=== PATIENT | male | born 1990 | race African-American/Black ===

== ENCOUNTER 2021-09-07 13:53 | Inpatient (IN) | payer BC ==
[~2021-09-07] VITALS: Ht 175.3 cm; Wt 77.1 kg
[2021-09-07] MEDS ORDERED: METHYLPREDNISOLONE SOD SUCC 125 MG/2 ML VIAL IV ONE (14:15)
[2021-09-07] MEDS ORDERED: DIPHENHYDRAMINE 50MG/ML VIAL IV ONE (14:15)
[2021-09-07] MEDS ORDERED: FAMOTIDINE 20MG/2ML VIAL IV STA (14:15)
[2021-09-07] MEDS ORDERED: SODIUM CHLORIDE 0.9% 1,000 ML IV ONE (14:15)
[2021-09-07] MEDS ORDERED: FLUO15CR46 TP (14:16)
[2021-09-07 16:00] LABS: HEMATOCRIT. 45.8 % (42.0-52.0); HEMOGLOBIN. 15.9 g/dL (14.0-18.0); MEAN CORPUSCULAR HEMOGLOBIN 28.6 pg (28.0-32.0); MEAN CORPUSCULAR VOLUME 82.6 fL (80.0-94.0); MEAN PLATELET VOLUME 9.5 fl (7.4-10.4); PLATELET 163 x1000/uL (130-400); RED BLOOD CELL COUNT 5.55 mill/uL (4.7-6.1)
[2021-09-07] MEDS ORDERED: DIPHENHYDRAMINE 50MG/ML VIAL IV NR (16:00)
[2021-09-07] MEDS ORDERED: METHYLPREDNISOLONE SOD SUCC 125 MG/2 ML VIAL IV NR (16:00)
[2021-09-07] MEDS ORDERED: FAMOTIDINE 20MG/2ML VIAL IV NR (16:00)
[2021-09-07 16:04] LABS: CHLORIDE 101 mEq/L (98-107)
[2021-09-07 16:06] LABS: INR 1.1; PROTHROMBIN TIME 11.8 sec (9.6-11.0)
[2021-09-07] MEDS ORDERED: PIPERACILLIN/TAZ 3.375G PREMIX 50 ML IV ONE (16:30)
[2021-09-07] MEDS ORDERED: SODIUM CHLORIDE 0.9% 1000ML BAG (SEPSIS BOLUS) IV ONE (16:30)
[2021-09-07] MEDS ORDERED: VANCOMYCIN 1G PREMIX 200 ML IV ONE (16:30)
[2021-09-07 17:00] LABS: PLATELET ESTIMATE NORMAL
[2021-09-07] MEDS ORDERED: VANCOMYCIN 1GM PMX (XELLIA) 200 ML IV NR (17:30)
[2021-09-07 19:00] VITALS: BP 112/63
[2021-09-07] MEDS ORDERED: ACETAMINOPHEN 325MG TABLET PO PRN (19:00)
[2021-09-07] MEDS ORDERED: ONDANSETRON HCL 4MG/2ML INJ IV PRN (19:00)
[2021-09-07] MEDS ORDERED: GUAIFENESIN 200MG/10ML SUGAR FREE UDC PO PRN (19:00)
[2021-09-07] MEDS ORDERED: IPRATROPIUM/ALBUTEROL 0.5-3(2.5)MG/3ML NEB NEB PRN (19:00)
[2021-09-07] MEDS ORDERED: ACETAMINOPHEN 650MG SUPP PR PRN (19:00)
[2021-09-07] MEDS ORDERED: DOCUSATE SODIUM 100MG CAPSULE PO PRN (19:00)
[2021-09-07] MEDS ORDERED: NA PHOS,M-B/NA PHOS,DI-BA ENEMA 118ML PR PRN (19:00)
[2021-09-07] MEDS ORDERED: CLONIDINE 0.1MG TABLET PO PRN (19:00)
[2021-09-07] MEDS ORDERED: MAGNESIUM/ALUMINUM HYDROXIDE/SIMETHICONE 30ML UDC PO PRN (19:00)
[2021-09-07] MEDS ORDERED: DIPHENHYDRAMINE 50MG/ML VIAL IV PRN (19:00)
[2021-09-07] MEDS ORDERED: LORAZEPAM 0.5MG TABLET PO PRN (19:00)
[2021-09-07] MEDS ORDERED: HYDROCODONE/ACETAMINOPHEN 5/325MG TABLET PO PRN (19:00)
[2021-09-07 20:00] VITALS: BP 112/63
[2021-09-07] MEDS: CEFTRIAXONE 1,000 MG in DEXTROSE 5% WATER 50 ML IV SCH (20:19)
[2021-09-07] MEDS: SODIUM CHLORIDE 0.45% 1,000 ML IV SCH (20:20)
[2021-09-07] MEDS: FAMOTIDINE 20MG TABLET PO SCH (20:20)
[2021-09-07] MEDS: METHYLPREDNISOLONE SOD SUCC 40 MG/ML VIAL IV SCH (21:35)
[2021-09-07] MEDS: VANCOMYCIN 750MG PREMIX 150 ML IV SCH (21:36)
[2021-09-07 22:50] LABS: CREATINE KINASE 54 IU/L (39-308); CREATINE KINASE MB FRACTION < 1.0 ng/mL (0.5-3.6)
[2021-09-08] VITALS: BP 116/70
[2021-09-08 04:00] VITALS: BP 105/56
[2021-09-08] MEDS: METHYLPREDNISOLONE SOD SUCC 40 MG/ML VIAL IV SCH ×3 (05:50→19:50)
[2021-09-08] MEDS: VANCOMYCIN 750MG PREMIX 150 ML IV SCH ×2 (05:51→12:58)
[2021-09-08 05:57] LABS: HEMATOCRIT. 39.5 % (42.0-52.0); MEAN CORPUSCULAR HEMOGLOBIN 28.8 pg (28.0-32.0); MEAN CORPUSCULAR VOLUME 80.9 fL (80.0-94.0); MEAN PLATELET VOLUME 9.8 fl (7.4-10.4); PLATELET 166 x1000/uL (130-400); RED BLOOD CELL COUNT 4.88 mill/uL (4.7-6.1); RED CELL DISTRIBUTION WIDTH 12.9 % (11.6-14.6)
[2021-09-08 06:07] LABS: CHLORIDE 107 mEq/L (98-107)
[2021-09-08 06:25] LABS: CREATINE KINASE 43 IU/L (39-308); CREATINE KINASE MB FRACTION < 1.0 ng/mL (0.5-3.6); HDL CHOLESTEROL 23 mg/dL (40-59); LDL CHOLESTEROL 94 mg/dL (5-100)
[2021-09-08 08:00] VITALS: BP 119/66
[2021-09-08 12:00] VITALS: BP 111/59
[2021-09-08] MEDS: SODIUM CHLORIDE 0.45% 1,000 ML IV SCH (12:58)
[2021-09-08 13:41] LABS: CLARITY URINE CLEAR (CLEAR); COLOR URINE YELLOW (YELLOW); KETONES URINE NEGATIVE (NEGATIVE); LEUKOCYTE ESTERASE URINE NEGATIVE (NEGATIVE); NITRITE URINE NEGATIVE (NEGATIVE); OCCULT BLOOD URINE NEGATIVE (NEGATIVE); PH URINE 6.5 (4.5-8.0); PROTEIN URINE NEGATIVE (NEGATIVE); SPECIFIC GRAVITY URINE 1.007 (1.005-1.030); UROBILINOGEN URINE 0.2 E.U./dL (0.2-1.0)
[2021-09-08 14:06] LABS: *AMPHETAMINES SCREEN URINE NEGATIVE (NEGATIVE); *BARBITURATES SCREEN URINE NEGATIVE (NEGATIVE); *BENZODIAZEPINES SCREEN URINE NEGATIVE (NEGATIVE); *COCAINE SCREEN URINE NEGATIVE (NEGATIVE); CANNABINOID URINE SCREEN NEGATIVE (NEGATIVE); METHADONE URINE SCREEN NEGATIVE (NEGATIVE); OPIATES URINE SCREEN NEGATIVE (NEGATIVE); PHENCYCLIDINE URINE SCREEN NEGATIVE (NEGATIVE)
[2021-09-08 15:58] VITALS: BP 138/82
[2021-09-08] MEDS: ENOXAPARIN 40MG/0.4ML SYR SUBCUT SCH (16:00)
[2021-09-08] MEDS: CEFTRIAXONE 1,000 MG in DEXTROSE 5% WATER 50 ML IV SCH (19:49)
[2021-09-08] MEDS: VANCOMYCIN 1GM PMX (XELLIA) 200 ML IV SCH (19:49)
[2021-09-08] MEDS: FAMOTIDINE 20MG TABLET PO SCH (19:50)
[2021-09-08 20:00] VITALS: BP 127/75
[2021-09-08 23:59] LABS: PLATELET ESTIMATE NORMAL
[2021-09-09] VITALS: BP 126/81
[2021-09-09 04:00] VITALS: BP 125/79
[2021-09-09] MEDS: METHYLPREDNISOLONE SOD SUCC 40 MG/ML VIAL IV SCH ×3 (04:50→23:32)
[2021-09-09] MEDS: SODIUM CHLORIDE 0.45% 1,000 ML IV SCH ×2 (04:52→23:35)
[2021-09-09] MEDS: VANCOMYCIN 1GM PMX (XELLIA) 200 ML IV SCH ×3 (05:06→23:33)
[2021-09-09 07:12] LABS: HEMATOCRIT. 38.3 % (42.0-52.0); HEMOGLOBIN. 13.4 g/dL (14.0-18.0); MEAN CORPUSCULAR HEMOGLOBIN 28.7 pg (28.0-32.0); MEAN CORPUSCULAR VOLUME 81.8 fL (80.0-94.0); MEAN PLATELET VOLUME 10.2 fl (7.4-10.4); PLATELET 194 x1000/uL (130-400); RED BLOOD CELL COUNT 4.68 mill/uL (4.7-6.1); RED CELL DISTRIBUTION WIDTH 13.2 % (11.6-14.6)
[2021-09-09 08:00] VITALS: BP 110/64
[2021-09-09 09:53] LABS: CHLORIDE 108 mEq/L (98-107)
[2021-09-09 12:00] VITALS: BP 111/63
[2021-09-09 13:14] LABS: NUCLEATED RED BLOOD CELLS 1 /100 WBC; PLATELET ESTIMATE NORMAL
[2021-09-09] MEDS: ENOXAPARIN 40MG/0.4ML SYR SUBCUT SCH (15:39)
[2021-09-09 16:00] VITALS: BP 123/74
[2021-09-09 20:00] VITALS: BP 123/72
[2021-09-09] MEDS: CEFTRIAXONE 1,000 MG in DEXTROSE 5% WATER 50 ML IV SCH (23:32)
[2021-09-09] MEDS: FAMOTIDINE 20MG TABLET PO SCH (23:32)
[2021-09-10] VITALS: BP 121/75
[2021-09-10 04:00] VITALS: BP 101/63
[2021-09-10] MEDS: METHYLPREDNISOLONE SOD SUCC 40 MG/ML VIAL IV SCH ×3 (05:00→20:55)
[2021-09-10] MEDS: VANCOMYCIN 1GM PMX (XELLIA) 200 ML IV SCH (06:26)
[2021-09-10 07:08] LABS: HIV SCREEN 4G Non Reactive (Non Reactive)
[2021-09-10 07:19] LABS: HEMATOCRIT. 39.6 % (42.0-52.0); HEMOGLOBIN. 13.9 g/dL (14.0-18.0); MEAN CORPUSCULAR VOLUME 82.7 fL (80.0-94.0); MEAN PLATELET VOLUME 9.9 fl (7.4-10.4); PLATELET 207 x1000/uL (130-400); RED BLOOD CELL COUNT 4.79 mill/uL (4.7-6.1); RED CELL DISTRIBUTION WIDTH 13.6 % (11.6-14.6)
[2021-09-10 08:00] VITALS: BP 123/72
[2021-09-10 10:01] LABS: CHLORIDE 109 mEq/L (98-107)
[2021-09-10 12:00] VITALS: BP 135/66
[2021-09-10] MEDS: SODIUM CHLORIDE 0.45% 1,000 ML IV SCH (13:19)
[2021-09-10] MEDS ORDERED: NALOXONE HCL 0.4MG/ML VIAL IV PRN (14:00)
[2021-09-10 16:00] VITALS: BP 140/78
[2021-09-10] MEDS: ENOXAPARIN 40MG/0.4ML SYR SUBCUT SCH (16:00)
[2021-09-10] MEDS: VANCOMYCIN 1250MG in DEXTROSE 5% WATER 250ML IV SCH (17:46)
[2021-09-10 20:00] VITALS: BP 134/81
[2021-09-10] MEDS: FAMOTIDINE 20MG TABLET PO SCH (20:55)
[2021-09-10] MEDS: CEFTRIAXONE 1,000 MG in DEXTROSE 5% WATER 50 ML IV SCH (20:55)
[2021-09-10 21:26] LABS: PLATELET ESTIMATE NORMAL
[2021-09-11] VITALS: BP 125/82
[2021-09-11 04:00] VITALS: BP 122/79
[2021-09-11] MEDS: VANCOMYCIN 1250MG in DEXTROSE 5% WATER 250ML IV SCH (05:18)
[2021-09-11 06:10] LABS: ANTI-JO 1 ABS <0.2 AI (0.0-0.9); RNP ANTIBODY < 0.2 AI (0.0-0.9)
[2021-09-11] MEDS: SODIUM CHLORIDE 0.45% 1,000 ML IV SCH (06:50)
[2021-09-11 09:07] LABS: ANTI-DNA DOUBLE STRANDED QUANT < 1 IU/mL (0-9)
[2021-09-11] MEDS: METHYLPREDNISOLONE SOD SUCC 40 MG/ML VIAL IV SCH (09:28)
[2021-09-11] MEDS ORDERED: MED4 MT (14:26)
[2021-09-11 15:13] VITALS: BP 126/80
[2021-09-12 09:09] LABS: EBV NUCLEAR IGG >600.0 U/mL (0.0-17.9); EBV VIRAL CAPSID AB IGM <36.0 U/mL (0.0-35.9); IMMUNOGLOBULIN A 298 mg/dL (90-386); IMMUNOGLOBULIN G 876 mg/dL (603-1613); IMMUNOGLOBULIN M 60 mg/dL (20-172)
[2021-09-13 09:06] LABS: ALDOLASE 9.2 U/L (3.3-10.3); ANA IFA Negative (.)
[2021-09-13 13:11] LABS: ANGIOTENSION CONVERTING ENZYME 15 U/L (14-82); ANTI-MYELOPEROXIDASE AB < 0.2 units (0.0-0.9); ANTI-PROTEINASE 3 ABS < 0.2 units (0.0-0.9)
[2021-09-14 04:08] LABS: IMMUNOGLOBULIN E TOTAL 389 IU/mL (6-495)
[2021-09-16 13:10] LABS: ATYPICAL P-ANCA <1:20 titer (Neg:<1:20); CYTOPLASMIC C-ANCA <1:20 titer (Neg:<1:20); PERINUCLEAR P-ANCA <1:20 titer (Neg:<1:20)
== END 2021-09-11 15:43 | disposition home or self-care (01) | DRG 872 ==
LOC: ER 14:31 → EDBEDREQ 14:36 → 6EST 15:32 → EDBEDREQ 15:33 → ENRESERV 16:48
PROVIDERS: ADMIT Internal Medicine; ATTEND Internal Medicine
DX: A41.9 Sepsis, unspecified organism (principal); R21 Rash and other nonspecific skin eruption; R65.20 Severe sepsis without septic shock; T38.0X5A Adverse effect of glucocorticoids and synthetic analogues, initial encounter; R73.9 Hyperglycemia, unspecified; D72.829 Elevated white blood cell count, unspecified; T78.40XA Allergy, unspecified, initial encounter; X58.XXXA Exposure to other specified factors, initial encounter; Y92.89 Other specified places as the place of occurrence of the external cause; Z88.8 Allergy status to other drugs, medicaments and biological substances
CPT/HCPCS: 36415; 71045; 80048; 80053; 80061; 80202; 80305; 81003; 82085; 82164; 82550; 82553; 82784; 82785; 83520; 83605; 84145; 84443; 85025; 85651; 86038; 86140; 86160; 86225; 86235; 86256; 86332; 86334; 86431; 86664; 86665; 87389; 93970; 99291; J0696; J1200; J1650; J2543; J2920; J2930; J3370; J3490; J7030; J7060